=== PATIENT | female | born 1990 | race Caucasian/White ===

== ENCOUNTER 2016-11-26 13:00 | Emergency (ER) | payer MEDICARE | END 2016-11-26 15:02 | disposition home or self-care (01) | LOC: ER 13:00 | DX: O91.113 Abscess of breast associated with pregnancy, third trimester (principal); Z3A.30 30 weeks gestation of pregnancy; O99.333 Smoking (tobacco) complicating pregnancy, third trimester; F17.210 Nicotine dependence, cigarettes, uncomplicated; Z79.899 Other long term (current) drug therapy | CPT/HCPCS: 87070; 99070; 99283-25 ==